=== PATIENT | male | born 1980 | race African-American/Black ===

== ENCOUNTER 2018-04-11 13:37 | Inpatient (IN) | payer SELFPAY ==
[~2018-04-11] VITALS: Ht 188 cm; Wt 120.2 kg
[2018-04-11 13:54] VITALS: BP 131/77
[2018-04-11] MEDS ORDERED: GLUCAGON 1 MG VIAL IVP ONE (16:10)
[2018-04-11] MEDS ORDERED: DEXAMETHASONE 10 MG/ML VIAL IVP ONE (16:10)
[2018-04-11 16:42] LABS: BASOPHILS % (AUTO) 0.3 % (0.0-2.0); EOSINOPHILS % (AUTO) 0.1 % (0.0-4.0); HEMATOCRIT 46.7 % (36-52); HEMOGLOBIN 15.3 g/dL (12.0-18.0); LYMPHOCYTES # (AUTO) 0.7 K/uL (2.0-11.5); LYMPHOCYTES % (AUTO) 7.2 % (20.5-51.1); MEAN CORPUSCULAR HEMOGLOBIN 29 pg (27-31); MEAN CORPUSCULAR HGB CONC 33 g/dL (33-37); MEAN CORPUSCULAR VOLUME 87.2 fL (80-94); MONOCYTES # (AUTO) 0.1 K/uL (0.8-1.0); MONOCYTES % (AUTO) 0.8 % (1.7-9.3); NEUTROPHILS # (AUTO) 9.3 K/uL (1.8-7.7); NEUTROPHILS % (AUTO) 91.6 % (42.2-75.2); PLATELET COUNT (AUTO) 247 K/uL (140-450); RED BLOOD CELL COUNT(AUTO) 5.36 MIL/uL (4.20-6.10); RED CELL DISTRIBUTION WIDTH 14.7 % (11.6-13.7); WHITE BLOOD COUNT (AUTO) 10.2 K/uL (4.8-10.8)
[2018-04-11 16:57] LABS: ANION GAP 13.3 (8-16); CARBON DIOXIDE 26.9 mmol/L (21-32); CREATININE 1.1 mg/dL (0.7-1.3); POTASSIUM 4.2 mmol/L (3.5-5.1)
[2018-04-11 17:22] LABS: PROTHROMBIN TIME 10.8 secs (10.8-13.4)
[2018-04-11] MEDS ORDERED: NACL 0.9% 1,000 ML IV SCH (17:51)
[2018-04-11] MEDS ORDERED: ACETAMINOPHEN 325 MG TAB PO PRN (17:55)
[2018-04-11] MEDS ORDERED: DOCUSATE SODIUM 100 MG GELCAP PO PRN (17:55)
[2018-04-11] MEDS ORDERED: ONDANSETRON 4 MG/2 ML VIAL IM/IVP PRN (17:55)
[2018-04-11] MEDS ORDERED: HYDROcodone/APAP 5/325 MG 1 TAB TAB PO PRN (17:55)
[2018-04-11] MEDS ORDERED: DEXT 5% / NACL 0.9% 500 ML IV ONE (18:30)
[2018-04-11 18:56] LABS: CHOL/HDL RATIO 2.6 (1-4.5); MAGNESIUM 2.1 mg/dL (1.8-2.4); PHOSPHORUS 3.3 mg/dL (2.5-4.9); THYROID STIMULATING HORMONE 1.16 uIU/mL (0.34-3.74)
[2018-04-11 19:40] VITALS: BP 115/63
[2018-04-12 00:20] VITALS: BP 121/65
[2018-04-12] MEDS: DEXT 5% /NACL 0.9% 1,000 ML IV SCH ×3 (00:30→16:40)
[2018-04-12 05:19] LABS: APPEARANCE,URINE CLEAR (CLEAR); BILIRUBIN,URINE NEGATIVE (NEGATIVE); BLOOD, URINE NEGATIVE (NEGATIVE); COLOR,URINE YELLOW (YELLOW); LEUKOCYTE ESTERASE ,URINE NEGATIVE (NEGATIVE); NITRITE, URINE NEGATIVE (NEGATIVE); UGLUCOSE NEGATIVE (NEGATIVE)
[2018-04-12 05:35] LABS: BARBITURATE, URINE NEGATIVE ng/ml (NEG <=200); BENZODIAZEPINE, URINE NEGATIVE ng/mL (NEG <=200); CANNABINOID, URINE NEGATIVE ng/mL (NEG <=50); COCAINE, URINE NEGATIVE ng/mL (NEG <=300); OPIATE, URINE NEGATIVE ng/mL (NEG <=2000); PHENCYCLIDINE SCREEN,URINE NEGATIVE ng/mL (NEG <=25)
[2018-04-12 08:00] VITALS: BP 151/77
[2018-04-12 08:19] LABS: BASOPHILS % (AUTO) 0.1 % (0.0-2.0); HEMATOCRIT 42.8 % (36-52); HEMOGLOBIN 13.9 g/dL (12.0-18.0); LYMPHOCYTES # (AUTO) 1.1 K/uL (2.0-11.5); LYMPHOCYTES % (AUTO) 7.1 % (20.5-51.1); MEAN CORPUSCULAR HEMOGLOBIN 28 pg (27-31); MEAN CORPUSCULAR HGB CONC 33 g/dL (33-37); MEAN CORPUSCULAR VOLUME 86.6 fL (80-94); MONOCYTES # (AUTO) 0.7 K/uL (0.8-1.0); MONOCYTES % (AUTO) 4.6 % (1.7-9.3); NEUTROPHILS # (AUTO) 14.2 K/uL (1.8-7.7); NEUTROPHILS % (AUTO) 88.2 % (42.2-75.2); PLATELET COUNT (AUTO) 223 K/uL (140-450); RED BLOOD CELL COUNT(AUTO) 4.94 MIL/uL (4.20-6.10); RED CELL DISTRIBUTION WIDTH 14.4 % (11.6-13.7); WHITE BLOOD COUNT (AUTO) 16.1 K/uL (4.8-10.8)
[2018-04-12 09:13] LABS: CARBON DIOXIDE 25.3 mmol/L (21-32); POTASSIUM 4.3 mmol/L (3.5-5.1)
[2018-04-12 16:00] VITALS: BP 120/64
[2018-04-13] VITALS: BP 111/67
[2018-04-13] MEDS: DEXT 5% /NACL 0.9% 1,000 ML IV SCH ×2 (01:48→09:20)
[2018-04-13 07:51] LABS: BASOPHILS % (AUTO) 0.2 % (0.0-2.0); EOSINOPHILS % (AUTO) 0.4 % (0.0-4.0); HEMOGLOBIN 13.5 g/dL (12.0-18.0); LYMPHOCYTES # (AUTO) 1.9 K/uL (2.0-11.5); LYMPHOCYTES % (AUTO) 19.2 % (20.5-51.1); MEAN CORPUSCULAR HEMOGLOBIN 28 pg (27-31); MEAN CORPUSCULAR HGB CONC 32 g/dL (33-37); MEAN CORPUSCULAR VOLUME 87.6 fL (80-94); MONOCYTES # (AUTO) 0.5 K/uL (0.8-1.0); MONOCYTES % (AUTO) 5.5 % (1.7-9.3); NEUTROPHILS # (AUTO) 7.5 K/uL (1.8-7.7); NEUTROPHILS % (AUTO) 74.7 % (42.2-75.2); PLATELET COUNT (AUTO) 194 K/uL (140-450); RED CELL DISTRIBUTION WIDTH 14.8 % (11.6-13.7)
[2018-04-13 08:00] VITALS: BP 107/56
[2018-04-13 08:13] LABS: ANION GAP 9.7 (8-16); CARBON DIOXIDE 29.8 mmol/L (21-32); CREATININE 1.2 mg/dL (0.7-1.3); POTASSIUM 4.5 mmol/L (3.5-5.1)
[2018-04-13 08:21] LABS: PHOSPHORUS 2.9 mg/dL (2.5-4.9)
[2018-04-13] MEDS ORDERED: fentaNYL 0.05 MG/ML VIAL ONE (09:44)
[2018-04-13] MEDS ORDERED: MIDAZOLAM 2 MG/2 ML VIAL ONE (09:44)
[2018-04-13] MEDS ORDERED: KETAMINE 500 MG/5 ML VIAL ONE (10:23)
[2018-04-13] MEDS ORDERED: ONDANSETRON 4 MG/2 ML VIAL IVP PRN (10:35)
[2018-04-13] MEDS ORDERED: HYDROmorphone 1 MG/ML AMP IVP PRN (10:35)
[2018-04-13 11:15] VITALS: BP 123/70
[2018-04-13] MEDS ORDERED: PANTOPRAZOLE 40 MG INJ VIAL IVP SCH (11:19)
[2018-04-13 11:30] VITALS: BP 120/71
[2018-04-13] MEDS ORDERED: OMEP20TC12 PO (11:40)
[2018-04-13 11:45] VITALS: BP 114/62
[2018-04-13 16:00] VITALS: BP 118/68
[2018-04-14] MEDS ORDERED: PANTOPRAZOLE 40 MG INJ VIAL IVP SCH (09:00)
== END 2018-04-13 18:45 | disposition home or self-care (01) | DRG 392 ==
LOC: MED 13:37 → MTU 18:13
PROVIDERS: ADMIT General Practice; ATTEND General Practice
PROC: 0DB68ZX Excision of Stomach, Via Natural or Artificial Opening Endoscopic, Diagnostic (ICD-10-PCS; 2018-04-13)
PROC: 0DB38ZX Excision of Lower Esophagus, Via Natural or Artificial Opening Endoscopic, Diagnostic (ICD-10-PCS; principal; 2018-04-13 11:20)
DX: K20.0 Eosinophilic esophagitis (principal); K52.81 Eosinophilic gastritis or gastroenteritis; D72.829 Elevated white blood cell count, unspecified; E66.9 Obesity, unspecified; Z68.34 Body mass index [BMI] 34.0-34.9, adult
CPT/HCPCS: 36415; 70490; 71045; 80048; 80305; 81003; 82150; 83036; 83605; 83690; 83735; 83880; 84100; 84443; 84484; 85025; 85610; 85730; 87081; 88305; 88312; 88313; 92610; 93005; 96374; 96375; 99285; C9113; J1100; J1610; J2250; J2405; J3010; J7030; J7042; Q0092